=== PATIENT | male | born 1980 | race Caucasian/White ===

== ENCOUNTER 2022-03-30 10:11 | Outpatient (CLI) | payer BC, SELFPAY ==
[2022-03-30 18:50] LABS: Alanine Aminotransferase 55 U/L (6-50); Albumin Level 4.5 g/dL (3.5-5.1); Alkaline Phosphatase 63 U/L (38-126); Anion Gap 12 mmol/L (8-16); Aspartate Amino Transferase 39 U/L (17-59); Bilirubin,Total 0.8 mg/dL (0.2-1.3); Blood Urea Nitrogen 15 mg/dL (9-20); Carbon Dioxide 24 mmol/L (22-30); Chloride 102 mmol/L (98-107); Cholesterol 194 mg/dL (0-200); Estimated Glomerular Filt Rate > 60; Glucose 101 mg/dL (65-110); HDL Direct 56 mg/dL; Potassium 3.9 mmol/L (3.4-5.0); Sodium 138 mmol/L (137-145); Triglycerides 101 mg/dL (<150)
[2022-03-30 19:01] LABS: LDL Cholesterol Direct 107 mg/dL
[2022-03-30 19:22] LABS: Hemoglobin A1C 5.5 % (<5.7)
== END 2022-03-30 10:12 | disposition home or self-care (01) ==
PROVIDERS: PCP Family Medicine; Visit Provider Family Medicine
DX: E78.5 Hyperlipidemia, unspecified (principal)
CPT/HCPCS: 36415; 80053; 80061; 83036

== ENCOUNTER 2022-10-03 10:04 | Outpatient (CLI) | payer BC, SELFPAY ==
[2022-10-03 14:19] LABS: Alanine Aminotransferase 60 U/L (6-50); Albumin Level 4.7 g/dL (3.5-5.1); Alkaline Phosphatase 66 U/L (38-126); Anion Gap 6 mmol/L (8-16); Aspartate Amino Transferase 60 U/L (17-59); Blood Urea Nitrogen 16 mg/dL (9-20); Calcium 9.2 mg/dL (8.4-10.2); Carbon Dioxide 29 mmol/L (22-30); Chloride 104 mmol/L (98-107); Estimated Glomerular Filt Rate > 60; Glucose 99 mg/dL (65-110); Potassium 4.2 mmol/L (3.4-5.0); Sodium 139 mmol/L (137-145)
== END 2022-10-03 10:05 | disposition home or self-care (01) ==
LOC: ANHGOSHLAB 10:04
PROVIDERS: PCP Family Medicine; Visit Provider Family Medicine
DX: R74.01 Elevation of levels of liver transaminase levels (principal)
CPT/HCPCS: 36415; 80053

== ENCOUNTER 2022-11-06 09:40 | Outpatient (CLI) | payer BC, SELFPAY ==
--- NOTE | 2022-11-13 17:36 | WPDHOMESLEEP ---
Sleep Study - Home Unattended Date of Study: 11/06/22 Ordering Provider: Garcia Adams MD Interpreting Provider: Clover Sidhu MD Home Sleep Study Type: Apnea Link Air Height: 1.8 m Weight: 130.181 kg Body Mass Index: 40.0 Neck Circumference (inches): 17.75 [place]: 2 Reason for Sleep Study Snoring, teeth grinding, multiple nighttime awakenings Sleep History The patient is a 42-year-old with hypertension, GERD, hair loss and obesity that had a sleep study ordered by his primary care for evaluation sleep apnea. The patient rarely awakens from sleep short of breath. He rarely awakens at night with heartburn, belching or cough. He constantly snores loudly enough that others complain. He denies having trouble sleeping when he has a cold. He rarely wakes up gasping for air throughout the night. He denies having breathing problems at night observed by himself or others. He frequently sweats excessively at night. He denies having heart palpitations or irregular heartbeats during the night. He denies falling asleep during the day and while driving. He denies sleep paralysis, cataplexy and hypnagogic/hypnopompic hallucinations. He rarely has trouble at school work due to sleepiness. He denies feeling afraid of going to sleep. He denies having nightmares. He occasionally remembers his dreams. He occasionally has thoughts racing through his mind. He denies feeling sad or depressed. He occasionally has anxiety. He denies having muscular tension. Rarely notices parts of his body jerk. He denies kicking during the night. He denies having crawling and aching feelings in his legs and denies having leg pain during the night. He frequently grinds his teeth during sleep and occasionally awakens morning jaw pain. He denies being bothered by pain during the day and denies being awakened by pain during the night. He occasionally wakes feeling stiff in the morning. He occasionally wakes with sore or achy muscles. He rarely wakes up with pain neck, spine joints. He goes to bed at 10:00 p.m. on both weekdays and weekends. He is able to fall asleep within 10 minutes. He wakes up more than 8 times throughout the night to reposition and is able to fall back asleep within a few minutes. He wakes up at 6:00 a.m. on weekdays and at 7:00 a.m. on weekends. He typically gets 7-8 hours of sleep per night. He will stay in bed for up to an hour after waking up in morning. He currently lives alone. He denies consuming any caffeinated beverages within 2 hours of bedtime. He denies engaging in physical exercise before bedtime. He will watch television before falling asleep. He denies taking naps in the afternoon with [place]. He consumes 1 caffeinated beverage per day. He will have 1-2 alcoholic beverages per day. He denies tobacco and recreational drug use. [facility] Past Medical History Medical History (Updated 11/13/22 @ 17:44 by Clover Sidhu MD) HTN (hypertension), benign Social History Social History Smoking status: Never smoker Lack of Transportation: No Lack of Food: Never True Current Housing: I Have Housing Concerned About Future Housing: No Difficulty Paying Gas/Electric Bills: No Difficulty Paying for Meds: No Currently Unemployed: No Education: Trade/Vocational Certificate Difficulty w/ Childcare or Family Care: No Medications Home Medications Medication Instructions Recorded Confirmed Type omeprazole 40 mg capsule,delayed 40 mg PO DAILY 01/16/22 10/09/22 History release semaglutide (weight loss) 0.25 0.25 mg (0.5 mL) subcut WEEKLY #2 10/09/22 10/09/22 Rx mg/0.5 mL subcutaneous pen mL injector (Rylan) Sleep Procedure This test was performed using 4 channel monitoring including respiratory effort channel, snoring channel, heart rate channel, and oxygen saturation channel. This study was scored using [facility] guidelines. S
[2022-11-13 17:49] VITALS: BMI 40.0
== END 2022-11-07 12:46 | disposition home or self-care (01) ==
LOC: ANHCSM 09:41
PROVIDERS: PCP Family Medicine; Visit Provider Family Medicine
DX: G47.30 Sleep apnea, unspecified (principal); G47.33 Obstructive sleep apnea (adult) (pediatric)
CPT/HCPCS: 95806

== ENCOUNTER 2023-04-12 09:42 | Outpatient (CLI) | payer BC, SELFPAY ==
[2023-04-12 19:05] LABS: Alanine Aminotransferase 43 U/L (6-50); Albumin Level 4.4 g/dL (3.5-5.1); Alkaline Phosphatase 55 U/L (38-126); Anion Gap 10 mmol/L (8-16); Aspartate Amino Transferase 43 U/L (17-59); Blood Urea Nitrogen 13 mg/dL (9-20); Calcium 9.4 mg/dL (8.4-10.2); Carbon Dioxide 30 mmol/L (22-30); Chloride 101 mmol/L (98-107); Cholesterol 200 mg/dL (0-200); Estimated Glomerular Filt Rate > 60; Glucose 93 mg/dL (65-110); HDL Direct 46 mg/dL; Potassium 4.8 mmol/L (3.4-5.0); Sodium 141 mmol/L (137-145); Triglycerides 60 mg/dL (<150)
[2023-04-12 19:16] LABS: LDL Cholesterol Direct 123 mg/dL
[2023-04-12 19:56] LABS: Hemoglobin A1C 4.8 % (<5.7)
[2023-04-12 20:14] LABS: Thyroid Stimulating Hormone Reflex 0.245 uIU/mL (0.465-4.68)
[2023-04-12 21:23] LABS: Free T4 Free Thyroxine Reflex 1.45 ng/dL (0.78-2.19)
[2023-04-12 22:19] LABS: Total Triiodothyronine (T3) 1.79 NG/ML (0.97-1.69)
== END 2023-04-12 09:43 | disposition home or self-care (01) ==
LOC: ANHGOSHLAB 09:44
PROVIDERS: PCP Family Medicine; Visit Provider Family Medicine
DX: E78.5 Hyperlipidemia, unspecified (principal); R74.01 Elevation of levels of liver transaminase levels; G47.30 Sleep apnea, unspecified
CPT/HCPCS: 36415; 80053; 80061; 83036; 84439; 84443; 84480

== ENCOUNTER 2024-08-28 08:35 | Outpatient (CLI) | payer BC, SELFPAY ==
[2024-08-28 12:12] LABS: Alanine Aminotransferase 41 U/L (6-50); Albumin Level 4.4 g/dL (3.5-5.1); Alkaline Phosphatase 48 U/L (38-126); Anion Gap 9 mmol/L (4-12); Aspartate Amino Transferase 63 U/L (17-59); Bilirubin,Total 0.9 mg/dL (0.2-1.3); Blood Urea Nitrogen 18 mg/dL (9-20); Calcium 9.3 mg/dL (8.4-10.2); Carbon Dioxide 28 mmol/L (22-30); Chloride 104 mmol/L (98-107); Estimated Glomerular Filt Rate > 60; Glucose 94 mg/dL (65-110); Potassium 4.5 mmol/L (3.4-5.0); Sodium 141 mmol/L (137-145)
[2024-08-28 12:56] LABS: Free T4 Free Thyroxine 1.05 ng/dL (0.78-2.19); Prostate Specific Antigen 1.2 ng/mL (< OR = 4.0)
[2024-08-28 13:10] LABS: Thyroid Stimulating Hormone Reflex 0.679 uIU/mL (0.465-4.68)
== END 2024-08-28 08:36 | disposition home or self-care (01) ==
PROVIDERS: PCP Family Medicine; Visit Provider Family Medicine
DX: E78.5 Hyperlipidemia, unspecified (principal); G47.30 Sleep apnea, unspecified; E66.9 Obesity, unspecified; R74.01 Elevation of levels of liver transaminase levels; Z12.5 Encounter for screening for malignant neoplasm of prostate
CPT/HCPCS: 36415; 80053; 84153; 84439; 84443; G0103

== ENCOUNTER 2025-03-24 08:17 | Outpatient (CLI) | payer BC, SELFPAY ==
--- NOTE | ~2025-03-24 | XR_ITS ---
EXAMINATION: XR shoulder RT min 2V, 03/24/2025 8:22 CDT HISTORY: Sprain of unspecified rotator cuff capsule, pain x 1 year COMPARISON: No comparisons available. Findings: No acute fracture or malalignment. No significant degenerative changes. Soft tissues unremarkable. Impression: No acute fracture or malalignment. Reviewed, dictated and finalized at location P. Impression: No acute fracture or malalignment.
== END 2025-03-24 08:18 | disposition home or self-care (01) ==
LOC: GOSHIMG 08:18
PROVIDERS: PCP Family Medicine; Visit Provider Family Medicine
DX: S43.429A Sprain of unspecified rotator cuff capsule, initial encounter (principal); X58.XXXA Exposure to other specified factors, initial encounter
CPT/HCPCS: 73030

== ENCOUNTER 2025-04-02 12:39 | Outpatient (CLI) | payer BC, SELFPAY ==
--- NOTE | ~2025-04-02 | MR_ITS ---
EXAM/PROCEDURE: MR shoulder RT wo con HISTORY: failed PT COMPARISON: None available. TECHNIQUE: Nonarthrographic right shoulder MRI performed FINDINGS: No fracture subluxation or dislocation present. Moderately severe osteophytic degenerative changes at the glenohumeral joint with diffuse, mildly heterogeneous cartilaginous thinning and joint space narrowing. There is moderate to severe arthrosis at the AC joint as well. Trace amount of fluid in the subacromial bursa. No definite labral tear on this nonarthrographic series. Soft tissue fullness and/or thickening along the bursal margin of the supraspinatus tendon noted with contour irregularity with no large retracted full-thickness tear. Vertically oriented linear signal focus in the distal supraspinatus tendon image 12 series 3 may represent a tiny full-thickness tear. The long head of the biceps tendon is intact within the bicipital groove. Superior labral attachment partially visualized appears intact. Spinoglenoid recess and suprascapular notch regions appear normal. IMPRESSION: 1. Advanced tendinosis and probable partial-thickness tear of the supraspinatus tendon; tiny full-thickness tear may also be present as described above. 2. Advanced osteophytic degenerative changes at the glenohumeral joint and arthrosis of the AC joint. Reviewed, dictated and finalized at location A. [employer] IMPRESSION: 1. Advanced tendinosis and probable partial-thickness tear of the supraspinatus tendon; tiny full-thickness tear may also be present as described above. 2. Advanced osteophytic degenerative changes at the glenohumeral joint and arth rosis of the AC joint.
== END 2025-04-02 12:40 | disposition home or self-care (01) ==
LOC: GOSHIMG 12:40
PROVIDERS: PCP Family Medicine; Visit Provider Family Medicine
DX: M75.81 Other shoulder lesions, right shoulder (principal); M19.011 Primary osteoarthritis, right shoulder
CPT/HCPCS: 73221